=== PATIENT | female | born 1970 | race Caucasian/White ===

== ENCOUNTER 2021-03-12 08:55 | Outpatient (CLI) | payer OTHER, SELFPAY ==
--- NOTE | ~2021-03-12 | MR_ITS ---
EXAMINATION: MR shoulder RT wo con DATE: 03/12/2021 09:44 INDICATION: Right rotator cuff disorder. Right shoulder pain. TECHNIQUE: Magnetic resonance imaging (MRI) of the right shoulder was performed without intravenous c ontrast. Sequences included axial PD-weighted FS FSE, coronal oblique PD-weighted FS FSE and T2-weigh spenser FS FSE, and sagittal oblique T2-weighted FS FSE and T1-weighted FSE. COMPARISON: None. FINDINGS: Coracoacromial arch: The acromion undersurface is curved in morphology (type II). There is mild acromioclavicular joint os teoarthritis. There is moderate subacromial/subdeltoid bursitis. Rotator cuff: There is a [id number], bursal-sided tear of supraspinatus tendon measuring 8 mm anterior to posterior by 9 mm proximal to distal. There is an interstitial tear of infraspinatus tendon measuring 12 mm anterior to posterior by 25 mm anterior to posterior by 20% tendon thickness. Teres minor tend on is normal. There is mild subscapularis tendinopathy. There is no asymmetric fatty atrophy of the r otator cuff muscle bellies. Biceps tendon and glenoid labrum: Biceps tendon is in bicipital groove. Intra-articular biceps tendon is normal. There is degeneration of glenoid labrum without well-defined tear. Fluid: There is a small glenohumeral joint effusion. Bones/cartilage: Glenoid cartilage is normal. Humeral cartilage is normal. IMPRESSION: 1. [id number], bursal-sided tear of supraspinatus tendon and interstitial tear of infraspina tus tendon. 2. Mild acromioclavicular joint osteoarthritis. 3. Moderate subacromial/subdeltoid bursitis. 4. Small glenohumeral joint effusion. Reviewed, dictated and finalized at location B. [facility] IMPRESSION: 1. [id number]-[id number], bursal-sided tear of supraspinatus tendon and interstit ial tear of infraspinatus tendon. 2. Mild acromioclavicular joint osteoarthritis. 3. Moderate subacromial/subdeltoid bursitis. 4. Small glenohumeral joint effusion.
== END 2021-03-12 08:56 | disposition home or self-care (01) ==
LOC: ANHIMG 09:04
PROVIDERS: Visit Provider Orthopaedic Surgery
DX: M19.011 Primary osteoarthritis, right shoulder (principal); M75.51 Bursitis of right shoulder; M25.411 Effusion, right shoulder
CPT/HCPCS: 73221